=== PATIENT | female | born 1955 ===

== ENCOUNTER 2018-08-25 10:05 | Emergency (ER) | payer OTHER ==
[2018-08-25 10:07] VITALS: BMI 33.8
[2018-08-25 10:37] VITALS: PULSE 91; RESP 20; TEMP 98.6; O2SAT 100
[2018-08-25 10:57] VITALS: BP 148/93
--- NOTE | 2018-08-25 14:05 | ED PDOC ---
Arrival/HPI - General Chief Complaint: High Blood Pressure Historian: Patient, Family - History of Present Illness Narrative History of Present Illness (Text): 08/25/18 10:50 63 year old female, with past medical history of hypertension, presents to the E D accompanied by family for evaluation of elevated blood pressure and anxiety since prior to arrival. Family states patient received a phone call from [facility] this morning regarding her son being involved in a serious motorcycle accident. Family reports of son in the accident but states patient is unaware of the news. Upon arrival to the ED, patient is mildly anxious but states feeling better. Patient denies any associated medical complaints. Patient denies any fevers, chills, headache, dizziness, chest pain, shortness of breath, dyspnea on exertion, cough, abdominal pain, nausea, vomiting, diarrhea, back pain, neck pain, or any other complaints. 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) HX Cerebrovascular Accident: No Hx Seizures: No - HEENT Hx HEENT Disorder: No - Renal Hx Renal Disorder: No - Endocrine/Metabolic Hx Endocrine Disorders: Yes Hx Diabetes Mellitus Type 2: Yes - Hematological/Oncological Hx Cancer: No - Integumentary Hx Dermatological Disorder: No - Musculoskeletal/Rheumatological Hx Musculoskeletal Disorders: Yes Hx Back Pain: Yes - Gastrointestinal Hx Gastrointestinal Disorders: No - Genitourinary/Gynecological Hx Genitourinary Disorders: No Hx Sexually Transmitted Diseases: No - Psychiatric Hx Psychophysiologic Disorder: Yes Hx Depression: Yes Hx Substance Use: No - Past Surgical History Past Surgical History: No Previous - Surgical History Hx Hysterectomy: Yes Hx Tubal Ligation: Yes - Anesthesia Hx Anesthesia: Yes Hx Anesthesia Reactions: No Hx Malignant Hyperthermia: No - Suicidal Assessment Feels Threatened In Home Enviroment: No Family/Social History - Physician Review Nursing Documentation Reviewed: Yes Family/Social History: Unknown Family HX Smoking Status: Never Smoked Hx Alcohol Use: No Hx Substance Use: No Allergies/Home Meds Allergies/Adverse Reactions: Allergies No Known Allergies Allergy (Verified 04/11/17 19:07) Home Medications: Home Meds Medication Instructions Recorded Confirmed Gabapentin 300 mg PO TID 10/13/17 10/27/17 Lisinopril [Zestril] 10 mg PO DAILY 10/13/17 10/27/17 Naproxen 500 mg PO BID PRN 10/13/17 10/27/17 metFORMIN [glucOPHAGE] 500 mg PO BID 10/13/17 10/27/17 Review of Systems - Physician Review All systems were reviewed & negative as marked: Yes - Review of Systems Constitutional: absent: Fevers Respiratory: absent: SOB, Cough Cardiovascular: absent: Chest Pain Gastrointestinal: absent: Abdominal Pain, Diarrhea, Nausea, Vomiting Genitourinary Female: absent: Dysuria, Urine Output Changes Musculoskeletal: absent: Back Pain, Neck Pain Skin: absent: Rash Neurological: absent: Headache, Dizziness Psychiatric: Anxiety Physical Exam Vital Signs Reviewed: Yes Vital Signs Temp Pulse Resp BP Pulse Ox 08/25/18 10:55 148/93 H 08/25/18 10:07 98.6 F 91 H 20 165/103 H 100 Temperature: Afebrile Blood Pressure: Hypertensive Pulse: Regular Respiratory Rate: Normal Appearance: Positive for: Well-Appearing, Non-Toxic, Comfortable Pain Distress: None Mental Status: Positive for: Alert and Oriented X 3 - Systems Exam Head: Present: Atraumatic, Normocephalic Pupils: Present: PERRL Extroacular Muscles: Present: EOMI Conjunctiva: Present: Normal Respiratory/Chest: Present: Clear to Auscultation, Good Air Exchange. No: Respiratory Distress, Accessory Muscle Use Cardiovascular: Present: Regular Rate and Rhythm, Normal S1, S2. No: Murmurs Abdomen: No: Tenderness, Distention, Peritoneal Signs Back: Present: Normal Inspection Upper Extremity: Present: Normal Inspection. No: Cyanosis, Edema Lower Extremity: Present: Normal Inspection. No: Edema Neurological: Present: GCS=15, CN II-XII Intact, Speech Normal Skin: Present: Warm, Dry, Normal Color. No: Rashes Psychiatric: Present: Alert, Oriented x 3, Normal Insight, Normal Concentration Medical Decision Making ED Course and Treatment: 08/25/18 10:25 Impression: 63 year old female presents to the ED for evaluation of elevated blood pressure and anxiety. Plan: -- Anti-anxiety medication -- Reassess and disposition Prior Visits: Notes and results from previous visits were reviewed. Progress Notes: Patient's repeat blood pressure is 148/93. Patient informs feeling better. Patient will be prescribed mild anti-anxiety medications with instructions for family to provide the news at home. - Scribe Statement The provider has reviewed the documentation as recorded by the Scribe Ramos Resendiz. All medical record entries made by the Scribe were at my direction and personally dictated by me. I have reviewed the chart and agree that the record accurately reflects my personal performance of the history, physical exam, medical decision making, and the department course for this patient. I have also personally directed, reviewed, and agree with the discharge instructions and disposition. Disposition/Present on Arrival - Present on Arrival Any Indicators Present on Arrival: No History of DVT/PE: No History of Uncontrolled Diabetes: No Urinary Catheter: No History of Decub. Ulcer: No History Surgical Site Infection Following: None - Disposition Have Diagnosis and Disposition been Completed?: Yes Diagnosis: Anxiety, Hypertension Disposition: HOME/ ROUTINE Disposition Time: 11:25 Condition: GOOD Discharge Instructions (ExitCare): Anxiety, Adult (DC) Additional Instructions: ESMER ARZOLA, thank you for letting us take care of you today. The emergency medical care you received today was directed at your acute symptoms. If you were prescribed any medication, please fill it and take as directed. It may take several days for your symptoms to resolve. Return to the Emergency Department if your symptoms worsen, do not improve, or if you have any other problems. Please contact your doctor or call one of the physicians/clinics you have been referred to that are listed on the Patient Visit Information form that is included in your discharge packet. Bring any paperwork you were given at discharge with you along with any medications you are taking to your follow up visit. Our treatment cannot replace ongoing medical care by a primary care provider outside of the emergency department. Thank you for allowing the [facility] team to be part of your care today. Follow up with your primary care doctor early next week for re-evaluation. Prescriptions: ALPRAZolam [Xanax] 0.25 mg PO Q8 PRN #5 tab PRN Reason: Anxiety Referrals: PCP,NO [Primary Care Provider] - Follow up with primary Forms: [email or web address] ([place]ian)
== END 2018-08-25 11:16 | disposition home or self-care (01) ==
LOC: ED 10:05
DX: I10 Essential (primary) hypertension (principal); F41.9 Anxiety disorder, unspecified